=== PATIENT | male | born 1990 | race Caucasian/White ===

== ENCOUNTER 2017-09-07 17:39 | Inpatient (IN) | payer OTHER ==
[2017-09-07 18:26] LABS: VENOUS BLOOD GAS BASE EXCESS 3.8 mmol/L (0.0-2.0); VENOUS BLOOD GAS PCO2 29 mmHg (40-60); VENOUS BLOOD GAS PO2 17 mm/Hg (30-55); VENOUS BLOOD PH 7.55 (7.32-7.43)
[2017-09-07 18:27] LABS: BASO % 0.4 % (0.0-2.0); EOS # 0.1 K/uL (0.0-0.7); EOS % 1.8 % (0.0-4.0); HEMOGLOBIN 15.1 g/dL (12.0-18.0); LYMPH % 39.3 % (20.0-40.0); MEAN CELL VOLUME 86.3 fl (80.0-94.0); MEAN CORPUSCULAR HEMOGLOBIN 28.3 pg (27.0-31.0); MEAN CORPUSCULAR HGB CONC 32.9 g/dL (33.0-37.0); MEAN PLATELET VOLUME 8.7 fl (7.2-11.7); MONO # 0.5 K/uL (0.0-0.8); MONO % 7.1 % (0.0-10.0); NEUT # 3.9 K/uL (1.8-7.0); NEUT % 51.4 % (50.0-75.0); NRBC % 0.1 % (0.0-0.0); RBC 5.34 Mil/uL (4.40-5.90); RED CELL DISTRIBUTION WIDTH 13.9 % (11.5-14.5); WHITE BLOOD COUNT 7.6 K/uL (4.8-10.8)
[2017-09-07] MEDS ORDERED: Sodium Chloride 0.9% 1,000 ML IV STA (18:29)
[2017-09-07 18:42] LABS: PARTIAL THROMBOPLASTIN TIME 42.7 Seconds (25.6-37.1); PROTHROMBIN TIME 11.4 Seconds (9.8-13.1)
[2017-09-07 18:48] LABS: ALB/GLOB RATIO 1.4 (1.0-2.1); ALBUMIN 4.8 g/dL (3.5-5.0); ALT/SGPT 31 U/L (21-72); AST/SGOT 25 U/L (17-59); BLOOD UREA NITROGEN 11 mg/dl (9-20); CALCIUM 10.3 mg/dL (8.4-10.2); GFR AFRICAN-AMERICAN > 60; GFR NON-AFRICAN AMERICAN > 60
--- NOTE | 2017-09-07 18:49 | ED PDOC ---
Lower Extremity Pain/Injury Additional Complaint(s): 27 YO M presents to the ED for severe pain and numbness along his left side of his body. 1 week ago patient was at work on a ladder when the area behind his left knee touched the pipe and it electrocuted him. He states at that time someone helped him down from he ladder, and that time he could not move his left arm or leg.Describes shooting pain in his left arm and his left leg. Rates pain at at 10/10. Denies falling off he ladder or having any direct impact to the region. He went to [place] at that time where there was imaging and blood work done, he is unsure what the diagnosis was, he was discharged on baclophen and gabapentin. Since then he was not able to have a bowl movement for 5 days after discharge, his last bowl movement was 2 days ago. He also states he needs to urinate right away if he doesn't urinate in time he looses inhibition. - Denies chest pain , SOB, nausea or vomiting PMH: Lower back pain PSH: Surgery on his head as a child after an injury but did no suffer from any neurological damage Allergy: NKDA FH: None SH: Denies illicit substance abuse <Dipesh Wheeler - Last Filed: 09/07/17 22:07> <Martina Hopkins - Last Filed: 09/10/17 18:33> Time Seen by Provider: 09/07/17 17:48 Chief Complaint (Nursing): Lower Extremity Problem/Injury Supervising Attending Note - Supervising Attending Note The Documented history was done by the: Physician Baker Biscuit, Attending Physician The documented physical exam was done by the: Physician Baker Biscuit, Attending Physician - Attestation: I have personally seen and examined this patient.: Yes I have fully participated in the care of the patient.: Yes I have reviewed all pertinent clinical information, including history, physical exam and plan: Yes - Notes: Notes:: LEFT leg paresis and LEFT arm spasm 1 week s/p electrocution to LEFT leg, worsening. Hospitalized under hospitalist service and d/w Dr Howard Neurologist. Further imaging ordered as discussed. <Martina Hopkins - Last Filed: 09/10/17 18:33> Past Medical History Reviewed: Historical Data, Nursing Documentation, Vital Signs Vital Signs: Last Vital Signs Temp 97.9 F 09/07/17 17:42 Pulse 78 09/07/17 17:42 Resp 16 09/07/17 17:42 BP 130/71 09/07/17 17:42 Pulse Ox 100 09/07/17 17:42 - Medical History PMH: Back Problems - Surgical History Other surgeries: head surgery as child ( uncertain type) - Family History Family History: States: No Known Family Hx - Social History Drugs: Denies - Immunization History Hx Tetanus Toxoid Vaccination: No Hx Influenza Vaccination: No Hx Pneumococcal Vaccination: No <Dipesh Wheeler - Last Filed: 09/07/17 22:07> Vital Signs: Last Vital Signs Temp 97.9 F 09/07/17 17:42 Pulse 78 09/07/17 17:42 Resp 16 09/07/17 17:42 BP 130/71 09/07/17 17:42 Pulse Ox 100 09/07/17 20:50 <Martina Hopkins - Last Filed: 09/10/17 18:33> - Home Medications Home Medications: Ambulatory Orders Medication Instructions Recorded Cyclobenzaprine [Flexeril] 5 mg PO TID PRN tab 09/08/17 Gabapentin [Neurontin] 600 mg PO TID #120 cap 09/08/17 Dexamethasone [Decadron] 10 mg PO TID 3 Days tab 09/09/17 - Allergies Allergies/Adverse Reactions: Allergies Allergy/AdvReac Type Severity Reaction Status Date / Time No Known Allergies Allergy Verified 09/07/17 17:41 Physical Exam - Reviewed Nursing Documentation Reviewed: Yes Vital Signs Reviewed: Yes - Physical Exam Appears: Positive for: Uncomfortable Head Exam: Positive for: ATRAUMATIC, NORMOCEPHALIC Skin: Positive for: Normal Color Neck: Positive for: Normal Cardiovascular/Chest: Positive for: Regular Rate, Rhythm Respiratory: Positive for: Normal Breath Sounds. Negative for: Crackles, Rales , Wheezing Pulses-Femoral (L): 3+/4+ Pulses-Femoral (R): 3+/4+ Gastrointestinal/Abdominal: Positive for: Normal Exam, Soft. Negative for: Tenderness Male Genital Exam: Positive for: normal genitalia, other (normal sensation in perianal region) Back: Positive for: Vertebral Tenderness (lumbar and cervical tenderness and paraspinal tenderness) Extremity: Positive for: Other (Tenderness on palpation of left shoulder,arm and forearm. Unable to move secondary to pain with active or passive movement. Decreased sesation along left lower extremity) DTR - Knee (R): 3+ DTR - Knee (L): 3+ Neurologic/Psych: Positive for: Alert, voltage inspector II-XII, Oriented, Motor/Sensory Deficits (Decreased sensation along anterior aspect of left leg). Negative for : Aphasia, Facial Droop <Dipesh Wheeler - Last Filed: 09/07/17 22:07> - Laboratory Results Result Diagrams: 09/07/17 18:11 09/07/17 18:11 - ECG O2 Sat by Pulse Oximetry: 100 <Dipesh Wheeler - Last Filed: 09/07/17 22:07> - Laboratory Results Result Diagrams: 09/09/17 05:30 09/09/17 05:30 - Critical Care Total Time (In Min): 30 Documented Critical Care: Time excludes all time spent performint seperately billable procedures <Martina Hopkins - Last Filed: 09/10/17 18:33> Disposition - Patient ED Disposition Is Patient to be Admitted: Yes - Disposition Disposition: Transfer of Care Disposition Time: 22:12 <Dipesh Wheeler - Last Filed: 09/07/17 22:07> <Martina Hopkins - Last Filed: 09/10/17 18:33> - Clinical Impression Clinical Impression: Left shoulder pain, Left leg weakness - Disposition Condition: STABLE
[2017-09-07] MEDS ORDERED: Oxycodone/Acetaminophen 5/325 mg Tab PO PRN (22:17)
--- NOTE | 2017-09-07 22:43 | CP.PCM.HP ---
History of Present Illness - History of Present Illness History of Present Illness: This is a 27 year old male with no significant past medical history who presents to the ED today with severe pain and intermittent numbness of his left upper and lower extremities along with intermittent flaccid paralysis of his left leg beginning 1 week ago. The patient states that he was at work when his popliteal space of the left knee touched a metal pipe and was electrocuted. He says immediately he began having sharp, shooting pain down his left leg to his foot and his left arm from his shoulder to his hand. He states that he went to [facility] after the event and had full workup done there including CT scan of the brain which was reportedly negative and was discharged with gabapentin and baclophen. Denies fecal incontinence. Since then however his pain has not improved and he has not been able to ambulate so he came to [facility] ED tonight. Here in the ED patient is hemodynamically stable. Labwork shows low phosphorus of 0.6; however no other gross abnormalities were seen. X rays of the shoulders and spine and MRI of cervical, thoracic, and lumbar spine were performed to r/o cord compression or other abnormalities; however no abnormality was identified. Dr. Howard, neurologist, was called from the ED and patient is to have MRI of the brain and further workup in the morning. Patient denies chest pain, shortness of breath, fevers, chills, nausea, vomiting, diarrhea, headache. All of the patient's and/or family's questions were answered at the bedside. Present on Admission - Present on Admission Any Indicators Present on Admission: No History of DVT/PE: No History of Uncontrolled Diabetes: No Review of Systems - Review of Systems Review of Systems: A 12 point review of systems was conducted and found to be negative other than what was mentioned in the HPI. Past Patient History - Infectious Disease Hx of Infectious Diseases: None - Past Medical History & Family History Past Medical History?: No Past Family History: Reviewed and not pertinent - Past Social History Smoking Status: Never Smoked Drugs: Denies - PSYCHIATRIC Hx Substance Use: No - SURGICAL HISTORY Hx Surgeries: Yes Other/Comment: left skull surgery from an accident. - ANESTHESIA Hx Anesthesia: Yes Hx Anesthesia Reactions: No Hx Malignant Hyperthermia: No Meds Allergies/Adverse Reactions: Allergies Allergy/AdvReac Type Severity Reaction Status Date / Time No Known Allergies Allergy Verified 09/07/17 17:41 Physical Exam - Additional Findings Additional findings: Physical exam: Constitutional- cooperative, awake, alert Head- NCAT, PERRL Eye- PERRL, EOMI ENT- normal exam, MMM. Neck- normal inspection, supple, no JVD Respiratory- CTAB, no wheezes rales rhonchi Cardiovascular- RRR, +S1, +S2 no MRG GI/Abdominal- normal bowel sounds, soft, no mass, no hsm Skin- warm, dry Extremities Exam- normal capillary refill, normal inspection Neurological Exam- 1/5 muscle strength left lower extremity, 2/5 strength left upper extremity, rest 5/5 muscle strength, alert, awake, oriented Psych- normal mood, normal affect Results - Vital Signs Recent Vital Signs: Last Vital Signs Temp 97.9 F 09/07/17 17:42 Pulse 78 09/07/17 17:42 Resp 16 09/07/17 17:42 BP 130/71 09/07/17 17:42 Pulse Ox 100 09/07/17 22:12 - Labs Result Diagrams: 09/07/17 18:11 09/07/17 18:11 Labs: Laboratory Results - last 24 hr 09/07/17 09/07/17 09/07/17 18:11 18:11 18:11 WBC 7.6 RBC 5.34 Hgb 15.1 Hct 46.1 MCV 86.3 MCH 28.3 MCHC 32.9 L RDW 13.9 Plt Count 221 MPV 8.7 Neut % (Auto) 51.4 Lymph % (Auto) 39.3 [place] % (Auto) 7.1 Eos % (Auto) 1.8 Baso % (Auto) 0.4 Neut # (Auto) 3.9 Lymph # (Auto) 3.0 [place] # (Auto) 0.5 Eos # (Auto) 0.1 Baso # (Auto) 0.0 PT 11.4 INR 1.0 APTT 42.7 H pO2 VBG pH VBG pCO2 VBG HCO3 VBG Total CO2 VBG O2 Sat (Calc) VBG Base Excess VBG Potassium Glucose Lactate FiO2 Sodium 144 Potassium 3.6 Chloride 105 Carbon Dioxide 22 Anion Gap 21 H BUN 11 Creatinine 0.8 Est GFR ( Amer) > 60 Est GFR (Non-Af Amer) > 60 Random Glucose 107 Calcium 10.3 H Phosphorus 0.6 L* Magnesium 1.9 Total Bilirubin 0.5 AST 25 ALT 31 Alkaline Phosphatase 80 Total Creatine Kinase 85 Total Protein 8.3 H Albumin 4.8 Globulin 3.5 Albumin/Globulin Ratio 1.4 Venous Blood Potassium Alcohol, Quantitative < 10 Blood Type Antibody Screen BBK History Checked 09/07/17 09/07/17 18:11 18:23 WBC RBC Hgb Hct MCV MCH MCHC RDW Plt Count MPV Neut % (Auto) Lymph % (Auto) [place] % (Auto) Eos % (Auto) Baso % (Auto) Neut # (Auto) Lymph # (Auto) [place] # (Auto) Eos # (Auto) Baso # (Auto) PT INR APTT pO2 17 L VBG pH 7.55 H VBG pCO2 29 L VBG HCO3 26.2 VBG Total CO2 26.3 VBG O2 Sat (Calc) 41.5 VBG Base Excess 3.8 H VBG Potassium 3.5 L Glucose 93 Lactate 3.4 H FiO2 21.0 Sodium 139.0 Potassium Chloride 105.0 Carbon Dioxide Anion Gap BUN Creatinine Est GFR ( Amer) Est GFR (Non-Af Amer) Random Glucose Calcium Phosphorus Magnesium Total Bilirubin AST ALT Alkaline Phosphatase Total Creatine Kinase Total Protein Albumin Globulin Albumin/Globulin Ratio Venous Blood Potassium 3.5 L Alcohol, Quantitative Blood Type A POSITIVE Antibody Screen Negative BBK History Checked No verified bt Assessment & Plan - Assessment and Plan (Free Text) Plan: ASSESSMENT/PLAN This is a 27 year old male with no significant past medical history who presents to the ED today with severe pain and intermittent numbness of his left upper and lower extremities along with intermittent flaccid paralysis of his left leg beginning 1 week ago. 1) Post electrocution syndrome with neuropathy - Telemetry/observation - MRI of the brain in AM to r/o CVA - Dr. Howard on consultation - Neuro checks q 8 hours - Regular diet - Start Gabapentin 300 mg po BID - Flexeril PRN for muscle spasms - Toradol PRN for pain - Percocet 1 tab q 6 hours PRN for breakthrough pain - F/u drug urine tox 2) Hypophosphatemia - Repleted with po - Recheck in AM 3) DVT prophylaxis - Heparin sq
[2017-09-08] MEDS ORDERED: Influenza Vaccine 18yr & older 0.5 ML/45 MCG SYR IM ONE (00:51)
--- NOTE | 2017-09-08 08:32 | RAD ---
PROCEDURE: Radiographs of the Left Shoulder HISTORY: severe arm pain COMPARISON: No prior. FINDINGS: BONES: Normal. No fracture. JOINTS: Normal. Glenohumeral and acromioclavicular joints preserved. No osteoarthritis. SOFT TISSUES: Normal. OTHER FINDINGS: None. IMPRESSION: Normal radiographs of the left shoulder.
--- NOTE | 2017-09-08 08:33 | MRI ---
PROCEDURE: MR CERVICAL SPINE WITHOUT CONTRAST HISTORY: mixed LEFT motor and sensory paralysis COMPARISON: None available. TECHNIQUE: Multiecho multiplanar sequences were performed through the cervical spine without the use of intravenous contrast. FINDINGS: Motion artifact on the axial T2 sequence limits evaluation. Normal cervical lordosis maintained. No evidence of a Chiari malformation Vertebral body heights maintained. Marrow signal is unremarkable. Visualized cervical cord is unremarkable in signal. C2-C3: No significant disc herniation, spinal canal stenosis or neural foraminal stenosis. C3-C4: Disc herniation. No significant spinal canal stenosis. Moderate left and mild right neural foraminal stenosis, left greater than right. C4-C5: No significant disc herniation, spinal canal stenosis or neural foraminal stenosis. C5-C6: No significant disc herniation, spinal canal stenosis or neural foraminal stenosis. C6-C7: No significant disc herniation, spinal canal stenosis or neural foraminal stenosis. C7-T1: No significant disc herniation, spinal canal stenosis or neural foraminal stenosis. OTHER FINDINGS: None. IMPRESSION: Disc herniation C3-C4 produces moderate left and mild right neural foraminal stenosis. No significant spinal canal stenosis identified of the cervical spine. Preliminary impression was provided by [facility]. Findings are concordant.
--- NOTE | 2017-09-08 08:33 | RAD ---
PROCEDURE: Radiographs of the Lumbar Spine. HISTORY: severe back pain decreased sensation LEFT leg COMPARISON: No prior. FINDINGS: BONES: Normal alignment. No listhesis. No fracture. With the exception of the L1-2 level, or Schmorl's node indentations at every lumbar level are noted. DISC SPACES: Unremarkable. OTHER FINDINGS: None. IMPRESSION: Schmorl's node indentations. Otherwise unremarkable
--- NOTE | 2017-09-08 08:36 | RAD ---
PROCEDURE: CHEST RADIOGRAPH, 1 VIEW HISTORY: pain diffuse COMPARISON: None available. FINDINGS: LUNGS: Clear. PLEURA: No pneumothorax or pleural fluid seen. CARDIOVASCULAR: Normal. OSSEOUS STRUCTURES: T6 through including T11 have Schmorl's node like concavities to their vertebral body margins on this single frontal view. VISUALIZED UPPER ABDOMEN: Normal. OTHER FINDINGS: None. IMPRESSION: No acute cardiopulmonary pathology. Mid thoracic segmental Schmorl's node indentations
--- NOTE | 2017-09-08 08:47 | MRI ---
PROCEDURE: MR LUMBAR SPINE WITHOUT CONTRAST HISTORY: mixed LEFT motor and sensory paralysis COMPARISON: Lumbar spine x-rays 09/07/2017. TECHNIQUE: Multiecho multiplanar sequences were performed through the lumbar spine without the use of intravenous contrast. FINDINGS: Straightening of the normal lumbar lordosis Vertebral body heights are maintained. Disc space heights are preserved. Conus medullaris unremarkable at the level of L1 Likely atypical hemangioma in the L3 vertebral body. T12-L1: No significant disc bulge, spinal canal stenosis, or neural foraminal stenosis. L1-2: No significant disc bulge, spinal canal stenosis, or neural foraminal stenosis. L2-3: Minimal Disc bulge. No significant spinal canal or neural foraminal stenosis. L3-4: Minimal Disc bulge. No significant spinal canal stenosis. Mild bilateral neural foraminal stenosis. L4-5: Disc bulge. Minimal spinal canal stenosis. No significant neural foraminal stenosis. L5-S1: No significant disc bulge, spinal canal stenosis, or neural foraminal stenosis. OTHER FINDINGS: None. IMPRESSION: Minimal disc bulge at L3-L4 with mild bilateral neural foraminal stenosis. Preliminary impression was provided by [facility]. Findings are discordant. .
--- NOTE | 2017-09-08 10:39 | MRI ---
PROCEDURE: MR THORACIC SPINE WITHOUT CONTRAST HISTORY: mixed LEFT motor and sensory paralysis COMPARISON: None available. TECHNIQUE: Multiecho multiplanar sequences were performed through the thoracic spine without the use of intravenous contrast. FINDINGS: ALIGNMENT: Normal thoracic spinal alignment. Normal thoracic kyphosis. VERTEBRA: Vertebral body height are preserved. MARROW: Marrow signal unremarkable. PARASPINAL SOFT TISSUES: Unremarkable. CORD: Unremarkable thoracic cord. No volume loss, signal abnormality or syrinx. The conus medullaris terminates at the L1 superior endplate level and appears normal in intrinsic signal as well. DISCS: No disc herniation, spinal canal stenosis, or neuroforaminal narrowing. OTHER FINDINGS: None. IMPRESSION: Unremarkable non-contrast enhanced MRI of the thoracic spine. Concordant preliminary report from [facility], 09/07/2017.
--- NOTE | 2017-09-08 11:29 | MRI ---
PROCEDURE: MRI BRAIN WITHOUT CONTRAST HISTORY: LEFT leg weakness COMPARISON: None. TECHNIQUE: Multiplanar, multisequence MR images of the brain were obtained without intravenous contrast enhancement. FINDINGS: HEMORRHAGE: None DWI: No evidence of an acute or early subacute infarction. BRAIN PARENCHYMA: Intrinsic signal throughout the pope and white matter structures above below the tentorium includes appears within normal limits including the brainstem. There is no mass effect, parenchymal edema or loss of the corticomedullary differentiation. Midline brain anatomy appears within normal limits including the corpus callosum, brainstem and craniocervical junction. There is no suspicious extra-axial fluid collection identified. VENTRICLES: Unremarkable. No hydrocephalus. CRANIUM: Unremarkable. ORBITS: Grossly unremarkable. PARANASAL SINUSES/MASTOIDS: Clear VASCULAR SYSTEM: Skull base flow voids intact. OTHER FINDINGS: None. IMPRESSION: Unremarkable non contrast enhanced MRI of the brain.
--- NOTE | 2017-09-08 12:28 | CARD ---
APPROVED REPORT EXAM: Two-dimensional and M-mode echocardiogram with Doppler and color Doppler. Other Information Quality : [employer] : NSR INDICATION Thrombus 2D DIMENSIONS IVSd0.79 (0.7-1.1cm)LVDd4.78 (3.9-5.9cm) LVOT Diameter2.00 (1.8-2.4cm)PWd0.92 (0.7-1.1cm) IVSs1.12 (0.8-1.2cm)LVDs3.33 (2.5-4.0cm) FS (%) 30.4 %PWs1.38 (0.8-1.2cm) M-Mode DIMENSIONS Left Atrium (MM)2.88 (2.5-4.0cm)IVSd0.88 (0.7-1.1cm) Aortic Root3.24 (2.2-3.7cm)LVDd4.99 (4.0-5.6cm) Aortic Cusp Exc.1.85 (1.5-2.0cm)PWd0.88 (0.7-1.1cm) IVSs1.29 cmFS (%) 36 % LVDs3.19 (2.0-3.8cm)PWs1.49 cm Mitral Valve MV E Alxjvkrq773.9cm/sMV DECEL [id number] A Nojdwofk99.8cm/s MV VAL46luY/A ratio2.6MVA (PHT)4.31cm2 TDI Lateral E' Peak V18.25cm/sMedial E' Peak V13.44cm/sE/Lateral E'5.6 E/Medial E'7.6 Pulmonary Valve PV Peak Raewxrtk049.6cm/s Tricuspid Valve TR Peak Prctfecl831dz/sRAP [id number] Peak Gr.22mmHg [id number] LEFT VENTRICLE The left ventricle is normal in size. There is normal left ventricular wall thickness. The left ventricular function is normal. The left ventricular ejection fraction is - 70%. There is normal LV segmental wall motion. The left ventricular diastolic function is normal. No left ventricle thrombus noted on this study. There is no ventricular septal defect visualized. There is no left ventricular aneurysm. There is no mass noted in the left ventricle. RIGHT VENTRICLE The right ventricle is normal size. There is normal right ventricular wall thickness. The right ventricular systolic function is normal. ATRIA The left atrium size is normal. There is no thrombus suspected in the left atrium. The right atrium size is normal. The interatrial septum is intact with no evidence for an atrial septal defect. AORTIC VALVE The aortic valve is normal in structure. No aortic regurgitation is present. There is no aortic valvular stenosis. There is no aortic valvular vegetation. MITRAL VALVE The mitral valve is normal in structure. The mitral valve does not fit strict criteria for prolapse. There is no mitral valve stenosis. Mitral regurgitation is trace. TRICUSPID VALVE The tricuspid valve is normal in structure. There is mild tricuspid regurgitation. Right ventricular systolic pressure is estimated at 34 mmHg. There is no tricuspid valve prolapse or vegetation. There is no tricuspid valve stenosis. PULMONIC VALVE The pulmonary valve is normal in structure. There is mild pulmonic valvular regurgitation. GREAT VESSELS The aortic root is normal in size. The IVC is normal in size and collapses >50% with inspiration. PERICARDIAL EFFUSION The pericardium appears normal. There is no pleural effusion. <Conclusion> The left ventricle is normal in size and wall thickness. The left ventricular function is normal. The left ventricular ejection fraction is - 70%. The left atrium, right ventricle and right atrium are normal in size. The mitral, aortic and tricuspid valves are normal. There is trace mitral regurgitation and mild tricuspid regurgitation.
[2017-09-08 13:26] LABS: SQUAMOUS EPITHIAL < 1 /hpf (0-5); URINE BILIRUBIN NEGATIVE (NEGATIVE); URINE BLOOD NEGATIVE (NEGATIVE); URINE CLARITY SLIGHTY-CLOUDY (Clear); URINE COLOR YELLOW (YELLOW); URINE GLUCOSE (UA) NEG (Normal); URINE LEUKOCYTE ESTERASE NEG Leu/uL (Negative); URINE PROTEIN 30 mg/dL (NEGATIVE); URINE UROBILINOGEN 0.2-1.0 mg/dL (0.2-1.0)
--- NOTE | 2017-09-08 14:31 | CP.PCM.CON ---
History of Present Illness - History of Present Illness History of Present Illness: Mr. Tomlinson is a 27-year-old man with no significant past medical history, who presented to the ED yesterday, complaining of severe pain and intermittent numbness of his left upper and lower extremities along with weakness. According to the patient, the incident that initiated his current symptoms was an electrocution of his left lower extremity that resulted in sudden pain and gradual weakness involving his leg and his arm. He did not lose consciousness after the event. He feels tingling pain and shooting pain from his neck, chest , left upper extremity and below the knees on the left side he has less sensation as compared with the right. He does not have any difficulty with speech, visual changes, nausea, vomiting, headache, or weakness on the right side. Currently, his left arm and leg are essentially flaccid. MRI of the brain did not show any acute findings. MRI of the spine was only really significant for moderate neural foraminal stenosis involving the left side of C3 /4. No spinal cord involvement. Review of Systems - Review of Systems All systems: reviewed and no additional remarkable complaints except Past Patient History - Infectious Disease Hx of Infectious Diseases: None - Past Medical History & Family History Past Medical History?: No - Past Social History Smoking Status: Never Smoked - HEMATOLOGICAL/ONCOLOGICAL Hx AIDS: No Hx Human Immunodeficiency Virus (HIV): No - MUSCULOSKELETAL/RHEUMATOLOGICAL Hx Falls: No - PSYCHIATRIC Hx Substance Use: No - SURGICAL HISTORY Hx Surgeries: Yes Other/Comment: left skull surgery from an accident. - ANESTHESIA Hx Anesthesia: Yes Hx Anesthesia Reactions: No Hx Malignant Hyperthermia: No Meds Home Medications: Home Medication List Medication Instructions Recorded Confirmed Type Cyclobenzaprine [Flexeril] 5 mg PO TID PRN tab 09/08/17 Rx Gabapentin [Neurontin] 600 mg PO TID #120 cap 09/08/17 Rx Allergies/Adverse Reactions: Allergies Allergy/AdvReac Type Severity Reaction Status Date / Time No Known Allergies Allergy Verified 09/07/17 17:41 - Medications Medications: Current Medications Acetaminophen (Tylenol 325mg Tab) 650 mg PO Q6 PRN PRN Reason: Pain, Mild (1-3) Cyclobenzaprine HCl (Flexeril) 5 mg PO TID PRN PRN Reason: Muscle spasm Last Admin: 09/08/17 08:57 Dose: 5 mg Docusate Sodium (Colace) 100 mg PO BID [facility] Last Admin: 09/08/17 08:57 Dose: 100 mg Gabapentin (Neurontin) 300 mg PO TID [facility] Last Admin: 09/08/17 12:34 Dose: 300 mg Heparin Sodium (Porcine) (Heparin) 5,000 units SC Q12 DORITA PRN Reason: Protocol Last Admin: 09/08/17 08:58 Dose: 5,000 units Ketorolac Tromethamine (Toradol) 30 mg IVP Q6 PRN PRN Reason: pain 4-10 Last Admin: 09/08/17 10:06 Dose: 30 mg Oxycodone/Acetaminophen (Percocet 5/325 Mg Tab) 1 tab PO Q6 PRN PRN Reason: Breakthrough pain Stop: 09/10/17 22:18 Last Admin: 09/08/17 05:10 Dose: 1 tab Physical Exam - Constitutional Appears: Well - Head Exam Head Exam: ATRAUMATIC, NORMAL INSPECTION, NORMOCEPHALIC - Eye Exam Eye Exam: EOMI, Normal appearance, PERRL - Neck Exam Neck exam: Positive for: Normal Inspection - Cardiovascular Exam Cardiovascular Exam: REGULAR RHYTHM - Extremities Exam Extremities exam: Positive for: normal inspection, tenderness - Back Exam Back exam: NORMAL INSPECTION - Neurological Exam Neurological exam: Abnormal Gait, Alert, CN II-XII Intact, Oriented x3, Reflexes Normal Additional comments: Left side hemiplegia. Sensation is diminished to light touch, pain, temperature and vibration/proprioception on the left side. Gait could not be assessed. Results - Vital Signs Recent Vital Signs: Last Vital Signs Temp 98.4 F 09/08/17 12:00 Pulse 56 L 09/08/17 13:10 Resp 20 09/08/17 12:00 BP 110/62 09/08/17 12:00 Pulse Ox 100 09/08/17 13:10 - Labs Result Diagrams: 09/07/17 18:11 09/07/17 18:11 Labs: Laboratory Results - last 24 hr 09/07/17 09/07/17 09/07/17 18:11 18:11 18:11 WBC 7.6 RBC 5.34 Hgb 15.1 Hct 46.1 MCV 86.3 MCH 28.3 MCHC 32.9 L RDW 13.9 Plt Count 221 MPV 8.7 Neut % (Auto) 51.4 Lymph % (Auto) 39.3 [place] % (Auto) 7.1 Eos % (Auto) 1.8 Baso % (Auto) 0.4 Neut # (Auto) 3.9 Lymph # (Auto) 3.0 [place] # (Auto) 0.5 Eos # (Auto) 0.1 Baso # (Auto) 0.0 PT 11.4 INR 1.0 APTT 42.7 H pO2 VBG pH VBG pCO2 VBG HCO3 VBG Total CO2 VBG O2 Sat (Calc) VBG Base Excess VBG Potassium Glucose Lactate FiO2 Sodium 144 Potassium 3.6 Chloride 105 Carbon Dioxide 22 Anion Gap 21 H BUN 11 Creatinine 0.8 Est GFR ( Amer) > 60 Est GFR (Non-Af Amer) > 60 Random Glucose 107 Calcium 10.3 H Phosphorus 0.6 L* Magnesium 1.9 Total Bilirubin 0.5 AST 25 ALT 31 Alkaline Phosphatase 80 Total Creatine Kinase 85 Total Protein 8.3 H Albumin 4.8 Globulin 3.5 Albumin/Globulin Ratio 1.4 Venous Blood Potassium Urine Color Urine Clarity Urine pH Ur Specific Mckenna Urine Protein Urine Glucose (UA) Urine Ketones Urine Blood Urine Nitrate Urine Bilirubin Urine Urobilinogen Ur Leukocyte Esterase Urine RBC (Auto) Urine Microscopic WBC Ur Squamous Epith Cells Urine Methadone Screen Alcohol, Quantitative < 10 Blood Type Antibody Screen BBK History Checked 09/07/17 09/07/17 09/08/17 18:11 18:23 05:01 WBC RBC Hgb Hct MCV MCH MCHC RDW Plt Count MPV Neut % (Auto) Lymph % (Auto) [place] % (Auto) Eos % (Auto) Baso % (Auto) Neut # (Auto) Lymph # (Auto) [place] # (Auto) Eos # (Auto) Baso # (Auto) PT INR APTT pO2 17 L VBG pH 7.55 H VBG pCO2 29 L VBG HCO3 26.2 VBG Total CO2 26.3 VBG O2 Sat (Calc) 41.5 VBG Base Excess 3.8 H VBG Potassium 3.5 L Glucose 93 Lactate 3.4 H FiO2 21.0 Sodium 139.0 Potassium Chloride 105.0 Carbon Dioxide Anion Gap BUN Creatinine Est GFR ( Amer) Est GFR (Non-Af Amer) Random Glucose Calcium Phosphorus 5.1 H Magnesium Total Bilirubin AST ALT Alkaline Phosphatase Total Creatine Kinase Total Protein Albumin Globulin Albumin/Globulin Ratio Venous Blood Potassium 3.5 L Urine Color Urine Clarity Urine pH Ur Specific Mckenna Urine Protein Urine Glucose (UA) Urine Ketones Urine Blood Urine Nitrate Urine Bilirubin Urine Urobilinogen Ur Leukocyte Esterase Urine RBC (Auto) Urine Microscopic WBC Ur Squamous Epith Cells Urine Methadone Screen Alcohol, Quantitative Blood Type A POSITIVE Antibody Screen Negative BBK History Checked No verified bt 09/08/17 09/08/17 05:13 13:02 WBC RBC Hgb Hct MCV MCH MCHC RDW Plt Count MPV Neut % (Auto) Lymph % (Auto) [place] % (Auto) Eos % (Auto) Baso % (Auto) Neut # (Auto) Lymph # (Auto) [place] # (Auto) Eos # (Auto) Baso # (Auto) PT INR APTT pO2 VBG pH VBG pCO2 VBG HCO3 VBG Total CO2 VBG O2 Sat (Calc) VBG Base Excess VBG Potassium Glucose Lactate FiO2 Sodium Potassium Chloride Carbon Dioxide Anion Gap BUN Creatinine Est GFR ( Amer) Est GFR (Non-Af Amer) Random Glucose Calcium Phosphorus Magnesium Total Bilirubin AST ALT Alkaline Phosphatase Total Creatine Kinase Total Protein Albumin Globulin Albumin/Globulin Ratio Venous Blood Potassium Urine Color Yellow Urine Clarity Slighty-cloudy Urine pH 6.0 Ur Specific Mckenna 1.017 Urine Protein 30 Urine Glucose (UA) Neg Urine Ketones Negative Urine Blood Negative Urine Nitrate Negative Urine Bilirubin Negative Urine Urobilinogen 0.2-1.0 Ur Leukocyte Esterase Neg Urine RBC (Auto) 2 Urine Microscopic WBC 2 Ur Squamous Epith Cells < 1 Urine Methadone Screen Negative Alcohol, Quantitative Blood Type Antibody Screen BBK History Checked Assessment & Plan (1) Left-sided weakness Assessment and Plan: So far, imaging has not shown any acute infarct or cord injury to explain his presentation. Whether or not the electrocution caused some peripheral nerve injury, is questionable. There may be perineural edema causing his symptoms since these have gradually gotten worse and over the course of a week swelling may have accumulated. With that regard, I recommend the following treatment for the peripheral nerve pain and weakness: 1. EMG/NCS as outpatient 2. Decadron 10 mg IV Q12 hours for 72 hours 3. Gabapentin 300 mg Q8 hours 4. PT/OT eval and treatment 5. CTA of the head/neck 6. DVT Px Thank you. Status: Acute Priority: High
[2017-09-08 14:38] LABS: BARBITURATES, UR NEGATIVE (NEGATIVE); BENZODIAZEPINES, UR NEGATIVE (NEGATIVE); OPIATES, UR NEGATIVE (NEGATIVE); PHENCYCLIDINE, UR NEGATIVE (NEGATIVE)
--- NOTE | 2017-09-08 15:01 | CARD ---
APPROVED REPORT EKG Measurement Heart [id number] <Conclusion> Normal sinus rhythm Normal ECG
--- NOTE | 2017-09-08 15:21 | CP.PCM.PN ---
Subjective - Date & Time of Evaluation Date of Evaluation: 09/08/17 Time of Evaluation: 11:30 - Subjective Subjective: Patient seen and examined bedside Complaining of on and off pain to left side of his body form shoulder to chest to lower abdomen and leg. States that pain gets so severe that it makes his ambulation difficult.Hemodynamically stable, afebrile Noticed to lie down in bed in NAD conversing with friend and moving left side of his body. Able to squeeze with LUE 4/5 strength Objective - Vital Signs/Intake and Output Vital Signs (last 24 hours): Temp Pulse Resp BP Pulse Ox 98.4 F 56 L 20 110/62 100 09/08/17 12:00 09/08/17 13:10 09/08/17 12:00 09/08/17 12:00 09/08/17 13:10 - Medications Medications: Current Medications Acetaminophen (Tylenol 325mg Tab) 650 mg PO Q6 PRN PRN Reason: Pain, Mild (1-3) Cyclobenzaprine HCl (Flexeril) 5 mg PO TID PRN PRN Reason: Muscle spasm Last Admin: 09/08/17 08:57 Dose: 5 mg Dexamethasone (Decadron Inj) 10 mg IV Q12H [facility] Docusate Sodium (Colace) 100 mg PO BID [facility] Last Admin: 09/08/17 08:57 Dose: 100 mg Gabapentin (Neurontin) 300 mg PO TID [facility] Last Admin: 09/08/17 12:34 Dose: 300 mg Heparin Sodium (Porcine) (Heparin) 5,000 units SC Q12 DORITA PRN Reason: Protocol Last Admin: 09/08/17 08:58 Dose: 5,000 units Ketorolac Tromethamine (Toradol) 30 mg IVP Q6 PRN PRN Reason: pain 4-10 Last Admin: 09/08/17 10:06 Dose: 30 mg Oxycodone/Acetaminophen (Percocet 5/325 Mg Tab) 1 tab PO Q6 PRN PRN Reason: Breakthrough pain Stop: 09/10/17 22:18 Last Admin: 09/08/17 05:10 Dose: 1 tab - Labs Labs: 09/07/17 18:11 09/07/17 18:11 PT 11.4 Seconds (9.8-13.1) 09/07/17 18:11 INR 1.0 (0.9-1.2) 09/07/17 18:11 APTT 42.7 Seconds (25.6-37.1) H 09/07/17 18:11 - Constitutional Appears: Non-toxic, No Acute Distress - Head Exam Head Exam: ATRAUMATIC, NORMAL INSPECTION, NORMOCEPHALIC - Eye Exam Eye Exam: EOMI, Normal appearance, PERRL Pupil Exam: NORMAL ACCOMODATION - ENT Exam ENT Exam: Mucous Membranes Moist, Normal Exam - Neck Exam Neck Exam: Full ROM, Normal Inspection - Respiratory Exam Respiratory Exam: Clear to Ausculation Bilateral, NORMAL BREATHING PATTERN. absent: Rales, Rhonchi, Wheezes - Cardiovascular Exam Cardiovascular Exam: REGULAR RHYTHM, RRR, +S1, +S2. absent: JVD - GI/Abdominal Exam GI & Abdominal Exam: Soft, Normal Bowel Sounds. absent: Distended, Guarding, Rebound - Rectal Exam Rectal Exam: Deferred - Extremities Exam Extremities Exam: Normal Capillary Refill, Normal Inspection. absent: Calf Tenderness, Pedal Edema - Back Exam Back Exam: NORMAL INSPECTION - Neurological Exam Neurological Exam: Alert, Awake, CN II-XII Intact, Oriented x3 Neuro motor strength exam: Left Upper Extremity: 4, Right Upper Extremity: 5, Left Lower Extremity: 3, Right Lower Extremity: 5 Additional comments: increased pain to left side of his body with minimal touch,hypersensitivity - Psychiatric Exam Psychiatric exam: Normal Affect, Normal Mood - Skin Skin Exam: Dry, Intact, Normal Color, Warm Additional comments: no skin brakes to left popliteal fossa or elsewhere Assessment and Plan - Assessment and Plan (Free Text) Assessment: 27 year old male with no significant past medical history presented to the ED with severe pain and intermittent numbness of his left upper and lower extremities along with intermittent flaccid paralysis of his left leg . Patient had an electrocution 2 week ago , was seen at [facility] and was cleared for discharge home after imaging and work up . He was discharged on Gabapentine and Flexeril. All imaging : MRI head ,thoracic and lumbar spine, shoulder xray and cervical spine xray showed no acute pathology , only minimal foraminal stenosis C3-C4 and L3 -L4 .Neurology consulted 1. Post electrocution syndrome with neuropathy ?-- questionable imaging showed no acute pathology, MRI head , thoracic ,lumbar spine, Xray c- spine, left shoulder xray Echo - wnl Unclear if patient's symptoms are legit or if there is some secondary gain involved since his symptoms are not persistent . He is able to squeeze with LUE 4/5 when instructed to do so, after explaining that this kind of injury does not cause muscle weakness. Neurology and PT consulted Will give 10 mg Decadron IV q8 hours ContinuE gabapentin and Flexeril check CPK , Ph Venous doppler LUE Toradol PRN for pain 2.Hypophosphatemia Was Repleted with po - Recheck in AM 3. DVT prophylaxis Heparin sq
[2017-09-08] MEDS ORDERED: Sodium Chloride 0.9% 100 ML ONE (15:46)
[2017-09-08] MEDS ORDERED: Iodixanol 320 MG/ML 100 ML BOTTLE IV ONE (15:46)
--- NOTE | 2017-09-08 18:00 | CT ---
PROCEDURE: CT Angiography of the Brain. HISTORY: evaluate for cerebrovascular disease COMPARISON: None available. TECHNIQUE: CT angiography of the intracranial arteries was performed. Coronal and sagittal maximum intensity projection reformated images were generated. Contrast Dose: Visipaque 320, 90 cc Radiation dose:Total exam DLP = 629.88 mGy-cm. This CT exam was performed using one or more of the following dose reduction techniques: Automated exposure control, adjustment of the mA and/or kV according to patient size, and/or use of iterative reconstruction technique. FINDINGS: INTERNAL CEREBRAL ARTERIES: Unremarkable. The skull base, petrous, cavernous and supraclinoid segments are bilaterally widely patent. ANTERIOR CEREBRAL ARTERIES: Unremarkable. A1 and A2 segments are widely patent. Smaller distal branches unremarkable, as visualized. MIDDLE CEREBRAL ARTERIES: Unremarkable. M1 and M2 segments are widely patent. Perisylvian branches grossly symmetric. POSTERIOR CIRCULATION: Basilar Artery: Unremarkable. Distal Vertebral Arteries: Unremarkable. Posterior Cerebral Arteries: Unremarkable. Posterior Inferior Cerebellar Arteries: Unremarkable. ANEURYSM/ VASCULAR MALFORMATIONS: None. OTHER FINDINGS: The patient is status post left frontal fracture or craniotomy IMPRESSION: Unremarkable CT Angiography of the Brain. Incidental prior left frontal craniotomy are fracture.
[2017-09-08] MEDS ORDERED: Dexamethasone 10 MG in Sodium Chloride 0.9% 50 ML IVPB SCH (21:00)
[2017-09-09 06:12] LABS: HEMOGLOBIN 14.8 g/dL (12.0-18.0); MEAN CELL VOLUME 87.1 fl (80.0-94.0); MEAN CORPUSCULAR HEMOGLOBIN 28.7 pg (27.0-31.0); MEAN CORPUSCULAR HGB CONC 32.9 g/dL (33.0-37.0); RBC 5.16 Mil/uL (4.40-5.90); RED CELL DISTRIBUTION WIDTH 13.1 % (11.5-14.5); WHITE BLOOD COUNT 7.9 K/uL (4.8-10.8)
[2017-09-09 07:15] LABS: ALB/GLOB RATIO 1.3 (1.0-2.1); ALBUMIN 4.5 g/dL (3.5-5.0); ALT/SGPT 25 U/L (21-72); AST/SGOT 23 U/L (17-59); BLOOD UREA NITROGEN 13 mg/dl (9-20); CALCIUM 10.5 mg/dL (8.4-10.2); GFR AFRICAN-AMERICAN > 60; GFR NON-AFRICAN AMERICAN > 60
--- NOTE | 2017-09-09 08:37 | CP.PCM.PN ---
Subjective - Date & Time of Evaluation Date of Evaluation: 09/09/17 Time of Evaluation: 08:37 Objective - Vital Signs/Intake and Output Vital Signs (last 24 hours): Temp Pulse Resp BP Pulse Ox 97.6 F 63 20 114/65 98 09/09/17 08:04 09/09/17 08:04 09/09/17 08:04 09/09/17 08:04 09/09/17 08:04 - Medications Medications: Current Medications Acetaminophen (Tylenol 325mg Tab) 650 mg PO Q6 PRN PRN Reason: Pain, Mild (1-3) Cyclobenzaprine HCl (Flexeril) 5 mg PO TID PRN PRN Reason: Muscle spasm Last Admin: 09/08/17 08:57 Dose: 5 mg Dexamethasone (Decadron Inj) 10 mg IV Q12H [facility] Last Admin: 09/08/17 21:16 Dose: 10 mg Docusate Sodium (Colace) 100 mg PO BID [facility] Last Admin: 09/08/17 16:51 Dose: 100 mg Gabapentin (Neurontin) 300 mg PO TID [facility] Last Admin: 09/08/17 16:50 Dose: 300 mg Heparin Sodium (Porcine) (Heparin) 5,000 units SC Q12 DORITA PRN Reason: Protocol Last Admin: 09/08/17 21:16 Dose: 5,000 units Ketorolac Tromethamine (Toradol) 30 mg IVP Q6 PRN PRN Reason: pain 4-10 Last Admin: 09/09/17 03:03 Dose: 30 mg - Labs Labs: 09/09/17 05:30 09/09/17 05:30 PT 11.4 Seconds (9.8-13.1) 09/07/17 18:11 INR 1.0 (0.9-1.2) 09/07/17 18:11 APTT 42.7 Seconds (25.6-37.1) H 09/07/17 18:11 Assessment and Plan - Assessment and Plan (Free Text) Plan: 27 year old male with no significant past medical history presented to the ED with severe pain and intermittent numbness of his left upper and lower extremities along with intermittent flaccid paralysis of his left leg . Patient had an electrocution 2 week ago , was seen at [facility] and was cleared for discharge home after imaging and work up . He was discharged on Gabapentine and Flexeril. All imaging : MRI head ,thoracic and lumbar spine, shoulder xray and cervical spine xray showed no acute pathology , only minimal foraminal stenosis C3-C4 and L3 -L4 .Neurology consulted 1. Post electrocution syndrome with neuropathy ?-- questionable imaging showed no acute pathology, MRI head , thoracic ,lumbar spine, Xray c- spine, left shoulder xray Echo - wnl Unclear if patient's symptoms are legit or if there is some secondary gain involved since his symptoms are not persistent . He is able to squeeze with LUE 4/5 when instructed to do so, after explaining that this kind of injury does not cause muscle weakness. Neurology and PT consulted Will give 10 mg Decadron IV q8 hours ContinuE gabapentin and Flexeril check CPK , Ph Venous doppler LUE Toradol PRN for pain 2.Hypophosphatemia Was Repleted with po - Recheck in AM 3. DVT prophylaxis Heparin sq
--- NOTE | 2017-09-09 09:35 | US ---
PROCEDURE: Left upper extremity venous Doppler exam dated 09/08/2017. HISTORY: Rule out DVT PRIORS: No prior study available comparison TECHNIQUE: Left upper extremity, internal jugular, subclavian, axillary, brachial, ulnar, radial, basilic and upper cephalic veins were evaluated. Flow was assessed with color Doppler, compressibility, assessment of phasic flow and augmentation response. FINDINGS: LEFT: The visualized deep veins left upper extremity including the left internal jugular, subclavian, axillary, brachial, basilic, cephalic, ulnar and radial veins exhibit flow, compressibility and augmentation without evidence of DVT. OTHER FINDINGS: None IMPRESSION: No evidence of DVT seen within the visualized deep veins left upper extremity
--- NOTE | 2017-09-09 11:22 | CP.PCM.PN ---
Subjective - Date & Time of Evaluation Date of Evaluation: 09/09/17 Time of Evaluation: 11:19 - Subjective Subjective: Mr. Tomlinson was seen and examined at the bedside. He is alert, oriented in all spheres. He was sitting up in his bedside chair, steady in posture. He remains with left side weakness. He is able to raise his left lower extremity and able to move his left hand. He was also able to squeeze the staff hand during assessment. CTA of the head and neck is unremarkable with incidental findings of prior left frontal craniotomy. Left upper extremity ultrasound showed no evidence of DVT. There was no untoward events overnight. Objective - Vital Signs/Intake and Output Vital Signs (last 24 hours): Temp Pulse Resp BP Pulse Ox 97.6 F 63 20 114/65 98 09/09/17 08:04 09/09/17 08:04 09/09/17 08:04 09/09/17 08:04 09/09/17 08:04 - Medications Medications: Current Medications Acetaminophen (Tylenol 325mg Tab) 650 mg PO Q6 PRN PRN Reason: Pain, Mild (1-3) Cyclobenzaprine HCl (Flexeril) 5 mg PO TID PRN PRN Reason: Muscle spasm Last Admin: 09/09/17 08:55 Dose: 5 mg Dexamethasone (Decadron Inj) 10 mg IV [facility]12H [facility] Last Admin: 09/09/17 08:56 Dose: 10 mg Docusate Sodium (Colace) 100 mg PO BID [facility] Last Admin: 09/09/17 08:55 Dose: 100 mg Gabapentin (Neurontin) 300 mg PO TID [facility] Last Admin: 09/09/17 08:55 Dose: 300 mg Heparin Sodium (Porcine) (Heparin) 5,000 units SC Q12 [facility] PRN Reason: Protocol Last Admin: 09/09/17 08:56 Dose: 5,000 units Ketorolac Tromethamine (Toradol) 30 mg IVP Q6 PRN PRN Reason: pain 4-10 Last Admin: 09/09/17 09:01 Dose: 30 mg - Labs Labs: 09/09/17 05:30 09/09/17 05:30 PT 11.4 Seconds (9.8-13.1) 09/07/17 18:11 INR 1.0 (0.9-1.2) 09/07/17 18:11 APTT 42.7 Seconds (25.6-37.1) H 09/07/17 18:11 - Constitutional Appears: No Acute Distress - Head Exam Head Exam: NORMAL INSPECTION - Neurological Exam Neurological Exam: Alert, Awake, Oriented x3 Neuro motor strength exam: Left Upper Extremity: 2/1, Right Upper Extremity: 5, Left Lower Extremity: 2/1, Right Lower Extremity: 5 Additional comments: He remains alert, oriented with left side weakness. sensation is diminished in the left side of his body. Assessment and Plan (1) Left-sided weakness Assessment & Plan: Case discussed with Dr. Llanes, continue all current medical. physical, and occupational therapies. Recommend EMG/ [facility] as an outpatient. Status: Acute
--- NOTE | 2017-09-09 16:15 | CP.PCM.DIS ---
Provider - Provider Date of Admission: 09/08/17 23:42 Attending physician: Patrick Flanagan DO Primary care physician: none Consults: neurology consult PT/Ot consult Time Spent in preparation of Discharge (in minutes): 15 Hospital Course - Lab Results Lab Results: Micro Results 09/08/17 13:02 Urine,Clean Catch Urine Culture - Final No Growth (<1,000 CFU/ML) Most Recent Lab Values WBC 7.9 K/uL (4.8-10.8) 09/09/17 05:30 RBC 5.16 Mil/uL (4.40-5.90) 09/09/17 05:30 Hgb 14.8 g/dL (12.0-18.0) 09/09/17 05:30 Hct 44.9 % (35.0-51.0) 09/09/17 05:30 MCV 87.1 fl (80.0-94.0) 09/09/17 05:30 MCH 28.7 pg (27.0-31.0) 09/09/17 05:30 MCHC 32.9 g/dL (33.0-37.0) L 09/09/17 05:30 RDW 13.1 % (11.5-14.5) 09/09/17 05:30 Plt Count 202 K/uL (130-400) 09/09/17 05:30 MPV 8.7 fl (7.2-11.7) 09/07/17 18:11 Neut % (Auto) 51.4 % (50.0-75.0) 09/07/17 18:11 Lymph % (Auto) 39.3 % (20.0-40.0) 09/07/17 18:11 [place] % (Auto) 7.1 % (0.0-10.0) 09/07/17 18:11 Eos % (Auto) 1.8 % (0.0-4.0) 09/07/17 18:11 Baso % (Auto) 0.4 % (0.0-2.0) 09/07/17 18:11 Neut # (Auto) 3.9 K/uL (1.8-7.0) 09/07/17 18:11 Lymph # (Auto) 3.0 K/uL (1.0-4.3) 09/07/17 18:11 [place] # (Auto) 0.5 K/uL (0.0-0.8) 09/07/17 18:11 Eos # (Auto) 0.1 K/uL (0.0-0.7) 09/07/17 18:11 Baso # (Auto) 0.0 K/uL (0.0-0.2) 09/07/17 18:11 PT 11.4 Seconds (9.8-13.1) 09/07/17 18: INR 1.0 (0.9-1.2) 09/07/17 18: APTT 42.7 Seconds (25.6-37.1) H 09/07/17 18:11 pO2 17 mm/Hg (30-55) L 09/07/17 18:23 VBG pH 7.55 (7.32-7.43) H 09/07/17 18: VBG pCO2 29 mmHg (40-60) L 09/07/17 18: VBG HCO3 26.2 mmol/L 09/07/17 18: VBG Total CO2 26.3 mmol/L (22-28) 09/07/17 18:23 VBG O2 Sat (Calc) 41.5 % (40-65) 09/07/17 18:23 VBG Base Excess 3.8 mmol/L (0.0-2.0) H 09/07/17 18:23 VBG Potassium 3.5 mmol/L (3.6-5.2) L 09/07/17 18: Sodium 139.0 mmol/L (132-148) 09/07/17 18:23 Chloride 105.0 mmol/L (98-107) 09/07/17 18:23 Glucose 93 mg/dL (75-110) 09/07/17 18:23 Lactate 3.4 mmol/L (0.7-2.1) H 09/07/17 18:23 FiO2 21.0 % 09/07/17 18:23 Sodium 142 mmol/l (132-148) 09/09/17 05:30 Potassium 4.8 MMOL/L (3.6-5.0) 09/09/17 05:30 Chloride 103 mmol/L (98-107) 09/09/17 05:30 Carbon Dioxide 23 mmol/L (22-30) 09/09/17 05:30 Anion Gap 21 (10-20) H 09/09/17 05:30 BUN 13 mg/dl (9-20) 09/09/17 05:30 Creatinine 0.8 mg/dl (0.8-1.5) 09/09/17 05:30 Est GFR ( Amer) > 60 09/09/17 05:30 Est GFR (Non-Af Amer) > 60 09/09/17 05:30 Random Glucose 160 mg/dL (75-110) H 09/09/17 05:30 Calcium 10.5 mg/dL (8.4-10.2) H 09/09/17 05:30 Phosphorus 2.9 mg/dl (2.5-4.5) 09/09/17 05:30 Magnesium 2.0 MG/DL (1.6-2.3) 09/09/17 05:30 Total Bilirubin 0.6 mg/dl (0.2-1.3) 09/09/17 05:30 AST 23 U/L (17-59) 09/09/17 05:30 ALT 25 U/L (21-72) 09/09/17 05:30 Alkaline Phosphatase 86 U/L (38-126) 09/09/17 05:30 Total Creatine Kinase 65 U/L (55-170) 09/09/17 05:30 Total Protein 8.0 G/DL (6.3-8.2) 09/09/17 05:30 Albumin 4.5 g/dL (3.5-5.0) 09/09/17 05:30 Globulin 3.5 gm/dL (2.2-3.9) 09/09/17 05:30 Albumin/Globulin Ratio 1.3 (1.0-2.1) 09/09/17 05:30 Venous Blood Potassium 3.5 mmol/L (3.6-5.2) L 09/07/17 18:23 Urine Color Yellow (YELLOW) 09/08/17 13:02 Urine Clarity Slighty-cloudy (Clear) 09/08/17 13:02 Urine pH 6.0 (5.0-8.0) 09/08/17 13:02 Ur Specific [place] 1.017 (1.003-1.030) 09/08/17 13:02 Urine Protein 30 mg/dL (NEGATIVE) 09/08/17 13:02 Urine Glucose (UA) Neg mg/dL (Normal) 09/08/17 13:02 Urine Ketones Negative mg/dL (NEGATIVE) 09/08/17 13:02 Urine Blood Negative (NEGATIVE) 09/08/17 13:02 Urine Nitrate Negative (NEGATIVE) 09/08/17 13:02 Urine Bilirubin Negative (NEGATIVE) 09/08/17 13:02 Urine Urobilinogen 0.2-1.0 mg/dL (0.2-1.0) 09/08/17 13:02 Ur Leukocyte Esterase Neg [place]/uL (Negative) 09/08/17 13:02 Urine RBC (Auto) 2 /hpf (0-3) 09/08/17 13:02 Urine Microscopic WBC 2 /hpf (0-5) 09/08/17 13:02 Ur Squamous Epith Cells < 1 /hpf (0-5) 09/08/17 13:02 Urine Opiates Screen Negative (NEGATIVE) 09/08/17 05:13 Urine Methadone Screen Negative (NEGATIVE) 09/08/17 05:13 Ur Barbiturates Screen Negative (NEGATIVE) 09/08/17 05:13 Ur Phencyclidine Scrn Negative (NEGATIVE) 09/08/17 05:13 Ur Amphetamines Screen Negative (NEGATIVE) 09/08/17 05:13 U Benzodiazepines Scrn Negative (NEGATIVE) 09/08/17 05:13 U Oth Cocaine Metabols Negative (NEGATIVE) 09/08/17 05:13 U Cannabinoids Screen Negative (NEGATIVE) 09/08/17 05:13 Alcohol, Quantitative < 10 mg/dl (0-10) 09/07/17 18:11 Blood Type A POSITIVE 09/07/17 18:11 Antibody Screen Negative 09/07/17 18:11 BBK History Checked No verified bt 09/07/17 18:11 - Hospital Course Hospital Course: 27 year old male with no significant past medical history presented to the ED with severe pain and intermittent numbness of his left upper and lower extremities along with intermittent flaccid paralysis of his left leg . Patient had an electrocution 2 weeks ago , was seen at [facility] and was cleared for discharge home after imaging and work up . He was discharged on Gabapentine and Flexeril. Today he returned to hospital for worsening on and off pain all over left side of his body, arm leg , body making it difficult for him to perform ADL-s due to pain. All imaging : MRI head ,thoracic and lumbar spine, shoulder xray and cervical spine xray, CTA head and neck , echo , laboratory work up including CBC, CMP CPK showed no acute pathology ,only minimal foraminal stenosis C3-C4 and L3 - L4 .Neurology consulted and recommended Decadron for 72 hours, Gabapentin and Flexeril , EMG /NCS as outpatient and continuation of PT. Patient is hemodynamically stable.He is able to ambulate to the restroom by himseld with no assistance , ambulated with walker for 20 feet x 2 with minimal assist. He lives with is family. Will discharge patient home with prescription for Gabapention 600 mg po TID, Flexeril PRN and decadron 1o mg Po TID for 3 days . Advised to follow up with neurologist as outpatient for EMG and NCS. He was provided with prescription for assiste devices both walker and wheelchair to assist him with ambulation . Advised to continue medical mangemnet and physical therapy as outpatient. 1. Post electrocution syndrome with neuropathy imaging showed no acute pathology, MRI head , thoracic ,lumbar spine, Xray c- spine, left shoulder xray , CTA head and neck , doppler Us Echo - wnl He is able to squeeze with LUE 4/5 when instructed to do so, after explaining that this kind of injury does not cause muscle weakness. Able to ambulate with no assistance to the restroom , able to ambulate with walker with minimal assist Neurology and PT consulted Will d/c home with outpatient PT Continue Decadron Po , Gabapentin and Flexeril PRN Follow up with neuro for EMG / NCS 2.Hypophosphatemia Was Repleted with po 3. DVT prophylaxis Heparin sq Discharge Exam - Head Exam Head Exam: ATRAUMATIC, NORMAL INSPECTION, NORMOCEPHALIC Additional comments: old left frontal scar - Eye Exam Eye Exam: EOMI, Normal appearance, PERRL Pupil Exam: NORMAL ACCOMODATION - ENT Exam ENT Exam: Mucous Membranes Moist, Normal Exam - Neck Exam Neck exam: Full Rom, Normal Inspection - Respiratory Exam Respiratory Exam: Clear to PA & Lateral, NORMAL BREATHING PATTERN, UNREMARKABLE. absent: Rhonchi, Respiratory Distress - Cardiovascular Exam Cardiovascular Exam: REGULAR RHYTHM, +S1, +S2. absent: JVD - GI/Abdominal Exam GI & Abdominal Exam: Normal Bowel Sounds, Soft. absent: Distended, Guarding, Rebound, Tenderness - Rectal Exam Rectal Exam: Deferred - Extremities Exam Extremities exam: normal capillary refill, normal inspection, pedal pulses present Additional comments: tenderness to LUE and LLE with touch - Back Exam Back exam: NORMAL INSPECTION - Neurological Exam Neurological exam: Alert, CN II-XII Intact, Oriented x3 - Psychiatric Exam Psychiatric exam: Normal Affect - Skin Skin Exam: Dry, Intact, Normal Color, Warm Additional comments: no skin breakdown Discharge Plan - Discharge Medications Prescriptions: Dexamethasone [Decadron] 10 mg PO TID 3 Days tab Gabapentin [Neurontin] 600 mg PO TID #120 cap - Follow Up Plan Condition: STABLE Disposition: HOME/ ROUTINE Patient education suggested?: Yes Instructions: Generalized Weakness (DC), Shoulder Pain (DC), Peripheral Neuropathy Additional Instructions: followup visit with in 1 week Referrals: [facility] [Outside] Stiven Howard MD [Medical Doctor] -
[2017-09-09 16:34] VITALS: BP 98/57; PULSE 74; RESP 20; TEMP 98.1; O2SAT 99
== END 2017-09-09 16:39 | disposition home or self-care (01) | DRG 455 ==
LOC: H.ER 17:39 → H.ERHOLD 21:32 → H.TEL 09-08 00:05 → OBSVTOIN 09-08 23:42
PROVIDERS: ADMIT Internal Medicine; ATTEND Internal Medicine
PROC: 3E0234Z Introduction of Serum, Toxoid and Vaccine into Muscle, Percutaneous Approach (ICD-10-PCS; principal; 2017-09-08)
DX: T75.4XXA Electrocution, initial encounter (principal); E83.39 Other disorders of phosphorus metabolism; W86.8XXA Exposure to other electric current, initial encounter; M48.02 Spinal stenosis, cervical region; Z23 Encounter for immunization; W86.1XXA Exposure to industrial wiring, appliances and electrical machinery, initial encounter; Y92.9 Unspecified place or not applicable; Y99.0 Civilian activity done for income or pay; G62.9 Polyneuropathy, unspecified; G83.14 Monoplegia of lower limb affecting left nondominant side